=== PATIENT | male | born 1970 | race Caucasian/White ===

== ENCOUNTER 2023-06-07 10:40 | Emergency (ER) | payer OTHER ==
[2023-06-07] MEDS: Morphine 2 MG/ML SYRINGE IVPUSH ONE ×3 (10:52→13:00)
[2023-06-07] MEDS: Ondansetron 4 MG/2 ML SDV IVPUSH ONE (10:53)
[2023-06-07] MEDS: Sodium Chloride 0.9% 10 ML Syringe FLUSH PRN (10:55)
[2023-06-07 10:56] LABS: BASOPHILS ABSOLUTE AUTO 0.06 K/uL (0.00-0.20); BASOPHILS PERCENT AUTO 0.7 % (0.0-2.0); EOSINOPHILS ABSOLUTE AUTO 0.21 K/uL (0.00-0.50); EOSINOPHILS PERCENT AUTO 2.6 % (0.0-5.0); HEMATOCRIT 42.7 % (39.0-49.0); HEMOGLOBIN 14.5 g/dL (13.1-16.8); LYMPHOCYTES ABSOLUTE AUTO 2.66 K/uL (0.50-3.50); LYMPHOCYTES PERCENT AUTO 32.9 % (10.0-50.0); MEAN CORPUSCULAR HEMOGLOBIN 31.7 pg (28.2-33.3); MEAN CORPUSCULAR VOLUME 93.4 fL (84.0-98.0); MONOCYTES ABSOLUTE AUTO 0.64 K/uL (0.00-1.00); MONOCYTES PERCENT AUTO 7.9 % (2.0-14.0); NEUTROPHILS ABSOLUTE AUTO 4.51 K/uL (1.40-7.00); NEUTROPHILS PERCENT AUTO 55.9 % (45.0-80.0); PLATELET COUNT,PLT 253 K/uL (150-350); RED BLOOD CELL COUNT 4.57 M/uL (4.33-5.41); RED CELL DISTRIBUTION WIDTH 13.8 % (11.2-14.1); WHITE BLOOD CELL COUNT,WBC 8.1 K/uL (4.0-10.2)
[2023-06-07 11:14] LABS: ANION GAP 11.1 meq/L (7-15); BILIRUBIN TOTAL 0.3 mg/dL (0.2-1.0); CALCIUM 8.8 mg/dL (8.5-10.1); CREATININE 1.34 mg/dL (0.51-1.17); EST CRCL DRUG DOSING (CG) 63.75 mL/min; POTASSIUM,K 4.1 mmol/L (3.5-5.1)
[2023-06-07] MEDS: Sodium Chloride 0.9% 1,000 ML IV ONE (11:26)
[2023-06-07] MEDS: ceFAZolin 1 GM in Sodium Chloride 0.9% 100 ML IV ONE (11:58)
[2023-06-07] MEDS: Diphtheria,Pertussis(Acell),Tetanus Vaccine 0.5 ML Syringe IM ONE (12:00)
== END 2023-06-07 13:16 ==
LOC: LL.ED 10:40
DX: S67.22XA Crushing injury of left hand, initial encounter (principal); S62.522A Displaced fracture of distal phalanx of left thumb, initial encounter for closed fracture; S62.232B Other displaced fracture of base of first metacarpal bone, left hand, initial encounter for open fracture; I10 Essential (primary) hypertension; F17.210 Nicotine dependence, cigarettes, uncomplicated; Z88.0 Allergy status to penicillin; W23.1XXA Caught, crushed, jammed, or pinched between stationary objects, initial encounter; Y99.0 Civilian activity done for income or pay
CPT/HCPCS: 36415; 73120-LT; 80053; 85025; 90471; 90715; 96361; 96365; 96375; 96376; 99284-25; J0690; J2270; J2405; J3490; J7030